=== PATIENT | male | born 1990 | race Caucasian/White ===

== ENCOUNTER 2018-03-15 22:29 | Emergency (ER) | payer SELFPAY ==
[2018-03-15] MEDS ORDERED: IBUPROFEN 800 MG TAB PO ONE (23:15)
[2018-03-15] MEDS ORDERED: ceFAZolin 2 GM/DEXTROSE 100 ML IV ONE (23:39)
[2018-03-16] MEDS ORDERED: CEFAZOLIN 1 GM/DEXTROSE/50 ML BAG IV ONE (00:06)
[2018-03-16 00:09] LABS: PLATELET COUNT 205 10^3/uL (150-400)
[2018-03-16] MEDS ORDERED: CEPHALEXIN 500MG PREPACK#4 BTL TAKEHOME ONE (00:26)
--- NOTE | 2018-03-16 00:26 | EDPHY ---
H & P Stated Complaint: L Ankle injury 3 days ago - Personal History Current Tetanus/Diphtheria Vaccine: Unsure Current Tetanus Diphtheria and Acellular Pertussis (TDAP): Unsure - Medical/Surgical History Hx Asthma: No Hx Chronic Respiratory Disease: No Hx Diabetes: No Hx Cardiac Disease: No Hx Renal Disease: No Hx Cirrhosis: No Hx Alcoholism: No Hx HIV/AIDS: No Hx Splenectomy or Spleen Trauma: No Other PMH: Denies - Social History Smoking Status: Never smoked Time Seen by Provider: 03/15/18 23:00 HPI/ROS: Chief complaint: Left ankle injury History of present illness: This is a 27-year-old male who presents to the emergency department for left ankle injury. Patient reports 3 days ago he was helping a friend who slipped and that the [place], he stepped in and twisted his ankle. Since then he has had pain and swelling that is slowly worsening. Associated redness. He denies associated signs or symptoms including no abnormal coolness or paresthesias in the foot. No other injuries to the body. No fevers. Review of systems: A 10 point review of systems was obtained and other than described above was negative (Emeka Kelley) - Physical Exam Exam: General: Alert, nontoxic Skin: Erythema and edema to the lateral and dorsal aspect of the foot extending up onto the ankle. No red streaking up the leg. Old abrasion to the lateral aspect of the foot. Musculoskeletal: Tenderness over the erythema as described above. He is moving the toes, ankle and knee well without discomfort. Vascular: DP and PT pulses 2+. Neurologic: Sensation intact throughout the left lower extremity. (Emeka Kelley) Constitutional: Initial Vital Signs Temperature (C) 37.3 C 03/15/18 22:43 Heart Rate 105 H 03/15/18 22:43 Respiratory Rate 16 03/15/18 22:43 Blood Pressure 156/100 H 03/15/18 22:43 O2 Sat (%) 96 03/15/18 22:43 O2 Delivery Mode Room Air Allergies/Adverse Reactions: No Known Allergies Allergy (Unverified 03/15/18 22:46) Home Medications: Medication Instructions Recorded Cephalexin [Keflex] 500 mg PO QID 9 Days cap 03/16/18 Medical Decision Making - Diagnostics Imaging: I viewed and interpreted images myself ED Course/Re-evaluation: Patient is discussed with my secondary supervising physician Dr. Adrianne Gonzalez. Patient presents for pain and swelling to the foot. It appears he initially injured it. He did scrape it at that time. However he appears to have developed a cellulitis. He is nontoxic. X-ray shows soft tissue swelling otherwise no other findings. I believe he is appropriate for outpatient management. The area has been demarcated with a surgical pen. He is given 2 g of Ancef IV. He will be discharged home on Keflex. Home care is discussed. He is to follow up with a primary care doctor for recheck. However, he is given strict return precautions. (Emeka Kelley) PHYSICIAN DOCUMENTATION: The patient was evaluated and managed by the Physician Vehicle Mechanic. My co- signature indicates that I have reviewed this chart and I agree with the findings and plan of care as documented. I am the secondary supervising physician. (Adrianne Gonzalez) Differential Diagnosis: Included but not limited to contusion, sprain or strain, cellulitis, abscess, unlikely necrotizing fasciitis or septic joint or DVT (Emeka Kelley) - Data Points Laboratory Results: Laboratory Results 03/16/18 00:02 03/16/18 00:02 03/16/18 03/16/18 00:02 00:02 WBC 11.70 10^3/uL H 10^3/uL (3.80-9.50) RBC 4.42 10^6/uL 10^6/uL (4.40-6.38) Hgb 13.3 g/dL L g/dL (13.7-17.5) Hct 38.5 % L % (40.0-51.0) MCV 87.1 fL fL (81.5-99.8) MCH 30.1 pg pg (27.9-34.1) MCHC 34.5 g/dL g/dL (32.4-36.7) RDW 12.5 % % (11.5-15.2) Plt Count 205 10^3/uL 10^3/uL (150-400) MPV 10.1 fL fL (8.7-11.7) Neut % (Auto) 70.5 % % (39.3-74.2) Lymph % (Auto) 20.0 % % (15.0-45.0) Phelps % (Auto) 7.9 % % (4.5-13.0) Eos % (Auto) 0.9 % % (0.6-7.6) Baso % (Auto) 0.3 % % (0.3-1.7) Nucleat RBC Rel Count 0.0 % % (0.0-0.2) Absolute Neuts (auto) 8.24 10^3/uL H 10^3/uL (1.70-6.50) Absolute Lymphs (auto) 2.34 10^3/uL 10^3/uL (1.00-3.00) Absolute Monos (auto) 0.93 10^3/uL H 10^3/uL (0.30-0.80) Absolute Eos (auto) 0.11 10^3/uL 10^3/uL (0.03-0.40) Absolute Basos (auto) 0.03 10^3/uL 10^3/uL (0.02-0.10) Absolute Nucleated RBC 0.00 10^3/uL 10^3/uL (0-0.01) Immature Gran % 0.4 % % (0.0-1.1) Immature Gran # 0.05 10^3/uL 10^3/uL (0.00-0.10) Sodium 143 mEq/L mEq/L (135-145) Potassium 3.7 mEq/L mEq/L (3.3-5.0) Chloride 108 mEq/L mEq/L (97-110) Carbon Dioxide 23 mEq/l mEq/l (22-31) Anion Gap 12 mEq/L mEq/L (8-16) BUN 13 mg/dL mg/dL (7-23) Creatinine 0.7 mg/dL mg/dL (0.7-1.3) Estimated GFR > 60 Glucose 87 mg/dL mg/dL (70-100) Calcium 9.4 mg/dL mg/dL (8.5-10.4) Medications Given: Discontinued Medications Cephalexin (Keflex 500 Mg Prepack#4) 1 btl TAKEHOME EDNOW ONE PRN Reason: Protocol Stop: 03/16/18 00:27 Last Admin: 03/16/18 00:45 Dose: 1 btl Cefazolin Sodium/Dextrose (Ancef 2 Gm) 100 mls @ 200 mls/hr IV EDNOW ONE PRN Reason: Protocol Stop: 03/16/18 00:08 Last Admin: 03/16/18 00:10 Dose: 100 mls Ibuprofen (Motrin) 800 mg PO EDNOW ONE Stop: 03/15/18 23:16 Last Admin: 03/15/18 23:17 Dose: 800 mg Departure - Departure Disposition: Home, Routine, Self-Care Clinical Impression: Cellulitis Qualifiers: Site of cellulitis: extremity Site of cellulitis of extremity: lower extremity Laterality: left Qualified Code(s): L03.116 - Cellulitis of left lower limb Condition: Good Instructions: Cephalexin (By mouth), Cellulitis (ED) Additional Instructions: Follow-up with a primary care doctor on Sunday for recheck Take all antibiotics as prescribed until finished even feeling better Apply warm compresses to the area multiple times daily If symptoms worsen or new symptoms develop please return immediately to the emergency room for recheck Referrals: NONE *PRIMARY CARE P,. [Primary Care Provider] - As per Instructions [facility],. [Clinic] - As per Instructions Stand Alone Forms: Statement of Treatment, Work Excuse Prescriptions: Cephalexin [Keflex] 500 mg PO QID 9 Days cap
[2018-03-16 00:38] VITALS: BP 147/80
== END 2018-03-16 00:48 | disposition home or self-care (01) ==
DX: L03.116 Cellulitis of left lower limb (principal); W18.40XA Slipping, tripping and stumbling without falling, unspecified, initial encounter
CPT/HCPCS: 96365; J0690